=== PATIENT | male | born 1995 | race Caucasian/White ===

== ENCOUNTER 2017-10-01 16:41 | Emergency (ER) | payer MEDICAID ==
[2017-10-01] MEDS: HYDROCODONE/APAP (5/325) TAB PO (17:32)
[2017-10-01] MEDS: IBUPROFEN 600 MG TAB PO (17:32)
== END 2017-10-01 19:50 | disposition home or self-care (01) ==
LOC: FTE 16:41
DX: S93.401A Sprain of unspecified ligament of right ankle, initial encounter (principal); F17.210 Nicotine dependence, cigarettes, uncomplicated; W18.39XA Other fall on same level, initial encounter; Y92.9 Unspecified place or not applicable
CPT/HCPCS: 29515; 73610-RT; 99283-25